=== PATIENT | female | born 1960 | race Caucasian/White ===

== ENCOUNTER 2024-08-14 12:23 | Outpatient (CLI) | payer MEDICARE, OTHER | END 2024-08-14 12:24 | disposition home or self-care (01) | LOC: BICMAMMO 12:23 | PROVIDERS: ATTEND Nurse Practitioner Family | DX: Z12.31 Encounter for screening mammogram for malignant neoplasm of breast (principal); Z78.0 Asymptomatic menopausal state; M81.0 Age-related osteoporosis without current pathological fracture; M85.88 Other specified disorders of bone density and structure, other site | CPT/HCPCS: 77063; 77067; 77080 ==